=== PATIENT | male | born 1970 | race Caucasian/White ===

== ENCOUNTER 2019-09-17 12:15 | Outpatient (CLI) | payer OTHER ==
--- NOTE | 2019-09-17 14:01 | ULT ---
ULTRASOUND RETROPERITONEUM COMPLETE: (RENAL) DATE: 09/17/2019 HISTORY: 49-year-old male with chronic kidney disease. COMPARISON: None FINDINGS: Right kidney: 13 x 7.5 x 6 cm. The left kidney: 11.5 x 5 x 7 cm. No hydronephrosis. 1.5 cm exophytic cyst protruding from right renal lower pole cortex. 1.5 cm exophytic cyst protruding from left renal upper pole cortex. Urinary bladder volume 300 mL. Otherwise no focal bladder abnormality identified. IMPRESSION: 1) at least 2 small exophytic renal cortical cysts, one on each side. 2) otherwise negative.
== END 2019-09-17 12:16 | disposition home or self-care (01) ==
LOC: BICULT 12:15
PROVIDERS: ATTEND Family Medicine
DX: Q61.3 Polycystic kidney, unspecified (principal)
CPT/HCPCS: 36415; 76770; 80048; 85025

== ENCOUNTER 2024-04-26 06:23 | Inpatient (IN) | payer OTHER ==
[2024-04-26] MEDS ORDERED: Ondansetron PF 4 MG/2 ML Vial IVP PRN (07:05)
[2024-04-26] MEDS ORDERED: Ondansetron ODT 4 MG TAB PO PRN (07:05)
[2024-04-26 07:46] VITALS: BMI 35.5
[2024-04-26 07:50] LABS: #Basophils 0.04 10x3/uL (0.0-0.2); #Eosinphils Less than 0.03 10x3/uL (0.0-0.7); %Basophils 0.4 % (0.0-1.0); %Eosinophils 0.1 % (0.0-10.0); %Lymphocytes 15.5 % (21.0-51.0); %Monocytes 6.3 % (0.0-10.0); %Neutrophils 77.4 % (42.0-75.0); Hematocrit 39.2 % (42.0-52.0); Hemoglobin 13.8 g/dL (14.0-18.0); Mean Corpuscular HGB CONC 35.2 g/dL (32.0-36.0); Mean Corpuscular Hemoglobin 30.6 pg (27.0-31.0); Mean Corpuscular Volume 86.9 fL (78.0-98.0); Platelet Count 246 10x3/uL (130-400); RBC Distribution Width 12.9 % (11.5-14.5); Red Blood Cell (RBC) Count 4.51 mill/uL (4.70-6.10)
[2024-04-26 08:06] LABS: ALT (SGPT) 26 U/L (8-55); AST (SGOT) 20 U/L (5-34); Albumin 3.5 g/dL (3.5-5.0); Alkaline Phosphatase 66 U/L (40-110); Anion Gap 17 mmol/L (10-20); BUN (Urea Nitrogen) 12 mg/dL (8.4-25.7); Bilirubin, Total 0.4 mg/dL (0.2-1.2); Calc. Creatinine Clearance 125 mL/min (70-130); Carbon Dioxide 20 mmol/L (22-29); Chloride 105 mmol/L (98-107); Estimated GFR 92; Globulin 3.6 g/dL (2.4-3.5); Glucose 118 mg/dL (70-105); Potassium 3.6 mmol/L (3.5-5.1); Protein, Total 7.1 g/dL (6.0-8.3); Sodium 138 mmol/L (136-145)
[2024-04-26] MEDS: Acetaminophen 325 MG TAB PO PRN (08:13)
[2024-04-26] MEDS: Famotidine 20 MG TAB PO SCH (08:14)
[2024-04-26] MEDS: Benzonatate 100 MG CAP PO PRN (08:14)
[2024-04-26] MEDS: Doxycycline 100 MG CAP PO SCH (08:14)
[2024-04-26] MEDS: Famotidine/PF 20 mg/2ml Vial SLOW IVP SCH (09:14)
[2024-04-26] MEDS: Ibuprofen 600 MG TAB PO PRN (12:58)
[2024-04-26] MEDS: Cefepime 2 GM in Sodium Chloride 0.9% 100 ML IVPB SCH (18:01)
[2024-04-26] MEDS: Guaifenesin DM 100-10/5 ML UDCUP PO PRN (21:00)
[2024-04-27] MEDS: Lactated Ringer's 1,000 ML IV SCH (02:35)
[2024-04-27 03:44] LABS: #Basophils Less than 0.03 10x3/uL (0.0-0.2); #Eosinphils Less than 0.03 10x3/uL (0.0-0.7); %Basophils 0.2 % (0.0-1.0); %Lymphocytes 10.3 % (21.0-51.0); %Monocytes 2.3 % (0.0-10.0); %Neutrophils 86.9 % (42.0-75.0); Hematocrit 40.6 % (42.0-52.0); Hemoglobin 13.9 g/dL (14.0-18.0); Mean Corpuscular HGB CONC 34.2 g/dL (32.0-36.0); Mean Corpuscular Hemoglobin 30.2 pg (27.0-31.0); Mean Corpuscular Volume 88.3 fL (78.0-98.0); Mean Platelet Volume 9.9 fL (7.4-10.4); Platelet Count 229 10x3/uL (130-400); RBC Distribution Width 13.2 % (11.5-14.5)
[2024-04-27 04:00] LABS: Anion Gap 14 mmol/L (10-20); BUN (Urea Nitrogen) 15 mg/dL (8.4-25.7); Calc. Creatinine Clearance 120 mL/min (70-130); Calcium 8.8 mg/dL (7.8-10.44); Carbon Dioxide 24 mmol/L (22-29); Chloride 104 mmol/L (98-107); Estimated GFR 88; Glucose 126 mg/dL (70-105); Potassium 4.1 mmol/L (3.5-5.1); Sodium 138 mmol/L (136-145)
[2024-04-27] MEDS ORDERED: cefTRIAXone\\ROCEPHIN 1 GM in Sodium Chloride 0.9% 100 ML IVPB SCH (04:00)
[2024-04-28 08:54] LABS: #Basophils Less than 0.03 10x3/uL (0.0-0.2); %Basophils 0.2 % (0.0-1.0); %Eosinophils 0.9 % (0.0-10.0); %Lymphocytes 27.3 % (21.0-51.0); Hematocrit 38.5 % (42.0-52.0); Mean Corpuscular HGB CONC 33.8 g/dL (32.0-36.0); Mean Corpuscular Hemoglobin 29.8 pg (27.0-31.0); Mean Corpuscular Volume 88.3 fL (78.0-98.0); Mean Platelet Volume 10.3 fL (7.4-10.4); Platelet Count 227 10x3/uL (130-400); RBC Distribution Width 12.9 % (11.5-14.5); Red Blood Cell (RBC) Count 4.36 mill/uL (4.70-6.10)
[2024-04-28 09:30] LABS: ALT (SGPT) 38 U/L (8-55); AST (SGOT) 59 U/L (5-34); Albumin 2.9 g/dL (3.5-5.0); Alkaline Phosphatase 56 U/L (40-110); Anion Gap 15 mmol/L (10-20); BUN (Urea Nitrogen) 12 mg/dL (8.4-25.7); Bilirubin, Total 0.5 mg/dL (0.2-1.2); Calc. Creatinine Clearance 143 mL/min (70-130); Calcium 8.8 mg/dL (7.8-10.44); Carbon Dioxide 22 mmol/L (22-29); Chloride 103 mmol/L (98-107); Estimated GFR 105; Globulin 3.8 g/dL (2.4-3.5); Glucose 113 mg/dL (70-105); Potassium 3.5 mmol/L (3.5-5.1); Protein, Total 6.7 g/dL (6.0-8.3); Sodium 136 mmol/L (136-145)
[2024-04-29 08:23] VITALS: BP 135/90; TEMP 98.4
== END 2024-04-29 10:50 | disposition home or self-care (01) | DRG 871 ==
LOC: T4-B 06:46 → PREOBSVTOIN 06:46 → INTOOBSV 06:46 → OBSVTOIN 04-27 13:13
PROVIDERS: ADMIT Internal Medicine; ATTEND Hospitalist
DX: A41.9 Sepsis, unspecified organism (principal); J18.9 Pneumonia, unspecified organism; J96.01 Acute respiratory failure with hypoxia; R65.20 Severe sepsis without septic shock; I51.7 Cardiomegaly
CPT/HCPCS: 36415; 71045; 80048; 80053; 83605; 83880; 84145; 85025; 86141; 87040; 87070; 87205; 93306; 96374; 96376; G0378; J0692; J3490; J7120